=== PATIENT | female | born 1955 | race Caucasian/White ===

== ENCOUNTER 2020-11-15 16:23 | Inpatient (IN) | payer OTHER ==
[2020-11-15] MEDS ORDERED: DEXAMETHASONE SOD PHOSPHATE 10 MG/1 ML VIAL IVPUSH ONE (17:01)
[2020-11-15] MEDS ORDERED: SODIUM CHLORIDE 0.9% 500 ML INFUS.BAG IV ONE (17:01)
[2020-11-15] MEDS ORDERED: DEXAMETHASONE SOD PHOSPHATE 10 MG/1 ML VIAL ONE (17:46)
[2020-11-15 18:35] LABS: BASO % 0.2 % (0-2.0); HEMATOCRIT 40.6 % (32.4-45.2); HEMOGLOBIN 13.3 GM/dL (10.7-15.3); LYMPH % 20.4 % (8-40); MCH 27.4 pg (25.7-33.7); MCHC 32.8 g/dl (32.0-36.0); MEAN CELL VOLUME 83.8 fl (80-96); MEAN PLT VOLUME 9.5 fl (7.5-11.1); MONO % 5.4 % (3.8-10.2); PLATELET COUNT 212 K/MM3 (134-434); RBC 4.85 M/mm3 (3.60-5.2); RDW 14.4 % (11.6-15.6); WHITE BLOOD COUNT 4.3 K/mm3 (4.0-10.0)
[2020-11-15 18:39] LABS: VENOUS BASE EXCESS 1.4 mmol/L (-2-2); VENOUS PCO2 46.9 mmHg (38-52); VENOUS PH 7.379 (7.310-7.410)
[2020-11-15 18:43] LABS: INR 1.11 (0.83-1.09); PROTHROMBIN TIME (PATIENT) 13.4 SEC (9.7-13.0)
[2020-11-15 18:46] LABS: ACTIVATED PTT 34.3 SECONDS (25.2-36.5)
[2020-11-15 18:53] LABS: CHLORIDE 100 mmol/L (98-107); POTASSIUM 4.3 mmol/L (3.5-5.1); SODIUM 134 mmol/L (136-145)
[2020-11-15 18:55] LABS: CALCIUM 8.8 mg/dL (8.5-10.1)
[2020-11-15 18:56] LABS: ANION GAP 9 MMOL/L (8-16); CO2 26 mmol/L (21-32); GLUCOSE,RANDOM 161 mg/dL (74-106)
[2020-11-15 18:58] LABS: BILIRUBIN,DIRECT 0.2 mg/dL (0.0-0.2)
[2020-11-15 18:59] LABS: CREATININE 0.6 mg/dL (0.55-1.3); SGOT/AST 71 U/L (15-37); SGPT/ALT 34 U/L (13-61)
[2020-11-15 19:00] LABS: BILIRUBIN,TOTAL 0.4 mg/dL (0.2-1); TOT PROT 7.5 g/dl (6.4-8.2)
[2020-11-15 19:01] LABS: ALK PHOS 76 U/L (45-117)
[2020-11-15 19:03] LABS: LDH 699 U/L (84-246)
[2020-11-15 20:37] LABS: EPI CELLS 13 /uL (0-25.1); HYALINE CASTS 1 /uL (0-3.1); PH,URINE 6.5 (5.0-8.0); URINE APPEARANCE CLEAR; URINE BACTERIA 69 /uL (0-1359); URINE BILIRUBIN NEGATIVE (NEGATIVE); URINE COLOR YELLOW; URINE GLUCOSE (UA) NEGATIVE (NEGATIVE); URINE KETONE 1+ (NEGATIVE); URINE LEUK ESTERASE NEGATIVE (NEGATIVE); URINE NITRITE NEGATIVE (NEGATIVE); URINE PROTEIN 1+ (NEGATIVE); URINE RBC 28 /uL (0-23.9); URINE UROBILINOGEN 0.2 mg/dL (0.2-1.0); URINE WBC 11 /uL (0-25.8)
[2020-11-15] MEDS ORDERED: ALBUTEROL SO4 HFA INHALER IH PRN (22:23)
[2020-11-16] MEDS: INSULIN SLIDING SCALE (NOVOLOG) 1 VIAL SQ SCH ×4 (06:12→21:44)
[2020-11-16] MEDS ORDERED: ACETAMINOPHEN 325 MG TABLET (FP) PO PRN (08:49)
[2020-11-16 09:30] LABS: BASO % 0.3 % (0-2.0); HEMATOCRIT 34.8 % (32.4-45.2); HEMOGLOBIN 11.7 GM/dL (10.7-15.3); MCH 28.1 pg (25.7-33.7); MCHC 33.6 g/dl (32.0-36.0); MEAN CELL VOLUME 83.6 fl (80-96); MEAN PLT VOLUME 9.7 fl (7.5-11.1); MONO % 9.1 % (3.8-10.2); NEUT % 65.6 % (42.8-82.8); PLATELET COUNT 189 K/MM3 (134-434); RBC 4.16 M/mm3 (3.60-5.2); RDW 14.1 % (11.6-15.6); WHITE BLOOD COUNT 2.3 K/mm3 (4.0-10.0)
[2020-11-16] MEDS: ZINC SULFATE 220 MG CAPSULE (FP) PO SCH (09:51)
[2020-11-16] MEDS: ASCORBIC ACID 500 MG TABLET (FP) PO SCH ×2 (09:51→21:38)
[2020-11-16] MEDS: DEXAMETHASONE SOD PHOSPHATE 4 MG/1 ML VIAL IVPUSH SCH (09:51)
[2020-11-16] MEDS ORDERED: ENOXAPARIN NA (PORCINE) 40 MG/0.4 ML DISP.SYRIN SQ SCH (10:00)
[2020-11-16] MEDS ORDERED: CHOLECALCIFEROL (VIT D3) 1,000 UNIT (25 MCG) TABLET PO SCH (10:00)
[2020-11-16 10:18] LABS: POTASSIUM 4.7 mmol/L (3.5-5.1)
[2020-11-16 10:20] LABS: CALCIUM 8.3 mg/dL (8.5-10.1)
[2020-11-16 10:21] LABS: ALBUMIN 2.4 g/dl (3.4-5.0); BLOOD UREA NITROGEN 14.5 mg/dL (7-18)
[2020-11-16 10:24] LABS: CREATININE 0.5 mg/dL (0.55-1.3)
[2020-11-16 10:25] LABS: BILIRUBIN,TOTAL 0.4 mg/dL (0.2-1)
[2020-11-16 10:26] LABS: TOT PROT 6.2 g/dl (6.4-8.2)
[2020-11-16] MEDS: ALBUTEROL SO4 HFA INHALER IH SCH ×3 (11:19→21:48)
[2020-11-16] MEDS: BUDESONIDE/FORMETEROL FUMARATE 160/4.5 mcg INHALER IH SCH ×2 (11:50→21:47)
[2020-11-16] MEDS ORDERED: REMDESIVIR 200 MG in SODIUM CHLORIDE 210 ML IVPB ONE (12:00)
[2020-11-16] MEDS: ATORVASTATIN CA 20 MG TABLET (FP) PO SCH (21:38)
[2020-11-16] MEDS: ENOXAPARIN NA (PORCINE) 60 MG/0.6 ML DISP.SYRIN SQ SCH (21:43)
[2020-11-17] MEDS: INSULIN SLIDING SCALE (NOVOLOG) 1 VIAL SQ SCH ×4 (06:36→21:36)
[2020-11-17] MEDS: CHOLECALCIFEROL (VIT D3) 1,000 UNIT (25 MCG) TABLET PO SCH (09:42)
[2020-11-17] MEDS: ZINC SULFATE 220 MG CAPSULE (FP) PO SCH (09:42)
[2020-11-17] MEDS: ENOXAPARIN NA (PORCINE) 60 MG/0.6 ML DISP.SYRIN SQ SCH ×2 (09:42→21:39)
[2020-11-17] MEDS: ASCORBIC ACID 500 MG TABLET (FP) PO SCH ×2 (09:43→21:32)
[2020-11-17] MEDS: DEXAMETHASONE SOD PHOSPHATE 4 MG/1 ML VIAL IVPUSH SCH (09:43)
[2020-11-17] MEDS: BUDESONIDE/FORMETEROL FUMARATE 160/4.5 mcg INHALER IH SCH ×2 (09:45→21:36)
[2020-11-17] MEDS: ALBUTEROL SO4 HFA INHALER IH SCH ×4 (09:45→19:50)
[2020-11-17] MEDS: REMDESIVIR 100 MG in SODIUM CHLORIDE 230 ML IVPB SCH (12:52)
[2020-11-17] MEDS: FAMOTIDINE 20 MG TABLET PO SCH ×2 (12:52→21:32)
[2020-11-17] MEDS: guaiFENesin/D-M SUGAR-FREE/ACLHOL-FREE 118 ML BOTTLE PO PRN (16:08)
[2020-11-17] MEDS: ATORVASTATIN CA 20 MG TABLET (FP) PO SCH (21:32)
[2020-11-17] MEDS: INSULIN (LEVEMIR) 100 UNITS/ML UNITS SQ SCH (21:37)
[2020-11-18] MEDS ORDERED: PT OWN MED DRAWER 7, Y5N ONE (02:44)
[2020-11-18] MEDS: INSULIN SLIDING SCALE (NOVOLOG) 1 VIAL SQ SCH ×4 (06:32→21:25)
[2020-11-18 08:30] LABS: HEMATOCRIT 35.5 % (32.4-45.2); HEMOGLOBIN 12.2 GM/dL (10.7-15.3); MCH 28.5 pg (25.7-33.7); MCHC 34.3 g/dl (32.0-36.0); MEAN CELL VOLUME 83.1 fl (80-96); MEAN PLT VOLUME 9.2 fl (7.5-11.1); PLATELET COUNT 261 K/MM3 (134-434); RBC 4.28 M/mm3 (3.60-5.2); WHITE BLOOD COUNT 9.2 K/mm3 (4.0-10.0)
[2020-11-18 08:48] LABS: POTASSIUM 4.5 mmol/L (3.5-5.1)
[2020-11-18 08:51] LABS: CALCIUM 8.6 mg/dL (8.5-10.1)
[2020-11-18 08:52] LABS: ALBUMIN 2.6 g/dl (3.4-5.0); BLOOD UREA NITROGEN 19.9 mg/dL (7-18)
[2020-11-18 08:55] LABS: CREATININE 0.7 mg/dL (0.55-1.3); PHOSPHOROUS 3.5 mg/dL (2.5-4.9)
[2020-11-18 08:57] LABS: BILIRUBIN,TOTAL 0.9 mg/dL (0.2-1); TOT PROT 6.6 g/dl (6.4-8.2)
[2020-11-18] MEDS: DEXAMETHASONE SOD PHOSPHATE 4 MG/1 ML VIAL IVPUSH SCH (09:55)
[2020-11-18] MEDS: CHOLECALCIFEROL (VIT D3) 1,000 UNIT (25 MCG) TABLET PO SCH (09:55)
[2020-11-18] MEDS: FAMOTIDINE 20 MG TABLET PO SCH ×2 (09:55→21:19)
[2020-11-18] MEDS: ASCORBIC ACID 500 MG TABLET (FP) PO SCH ×2 (09:55→21:19)
[2020-11-18] MEDS: ZINC SULFATE 220 MG CAPSULE (FP) PO SCH (09:55)
[2020-11-18] MEDS: ENOXAPARIN NA (PORCINE) 60 MG/0.6 ML DISP.SYRIN SQ SCH ×2 (09:56→21:27)
[2020-11-18] MEDS: BUDESONIDE/FORMETEROL FUMARATE 160/4.5 mcg INHALER IH SCH ×2 (09:57→21:33)
[2020-11-18] MEDS: ALBUTEROL SO4 HFA INHALER IH SCH ×4 (09:57→20:35)
[2020-11-18] MEDS: REMDESIVIR 100 MG in SODIUM CHLORIDE 230 ML IVPB SCH (11:09)
[2020-11-18] MEDS: ATORVASTATIN CA 20 MG TABLET (FP) PO SCH (21:19)
[2020-11-18] MEDS: INSULIN (LEVEMIR) 100 UNITS/ML UNITS SQ SCH (21:31)
[2020-11-19] MEDS: INSULIN SLIDING SCALE (NOVOLOG) 1 VIAL SQ SCH ×4 (06:23→21:48)
[2020-11-19 07:57] LABS: HEMATOCRIT 35.7 % (32.4-45.2); HEMOGLOBIN 12.1 GM/dL (10.7-15.3); MCH 28.2 pg (25.7-33.7); MCHC 33.8 g/dl (32.0-36.0); MEAN CELL VOLUME 83.2 fl (80-96); MEAN PLT VOLUME 9.2 fl (7.5-11.1); PLATELET COUNT 284 K/MM3 (134-434); RBC 4.29 M/mm3 (3.60-5.2); RDW 14.1 % (11.6-15.6); WHITE BLOOD COUNT 9.5 K/mm3 (4.0-10.0)
[2020-11-19 08:12] LABS: POTASSIUM 4.9 mmol/L (3.5-5.1)
[2020-11-19 08:14] LABS: ALBUMIN 2.4 g/dl (3.4-5.0); BLOOD UREA NITROGEN 19.3 mg/dL (7-18); CALCIUM 8.5 mg/dL (8.5-10.1)
[2020-11-19 08:15] LABS: MAGNESIUM 2.2 mg/dL (1.8-2.4)
[2020-11-19 08:19] LABS: BILIRUBIN,TOTAL 0.5 mg/dL (0.2-1)
[2020-11-19 08:20] LABS: PHOSPHOROUS 2.9 mg/dL (2.5-4.9)
[2020-11-19 08:24] LABS: CREATININE 0.6 mg/dL (0.55-1.3)
[2020-11-19 08:25] LABS: TOT PROT 6.1 g/dl (6.4-8.2)
[2020-11-19] MEDS ORDERED: PT OWN MED DRAWER 7, Y5N ONE ×2 (10:37→19:15)
[2020-11-19] MEDS: ASPIRIN 81 MG CHEWABLE TABLETS PO SCH (10:46)
[2020-11-19] MEDS: FAMOTIDINE 20 MG TABLET PO SCH ×2 (10:46→21:42)
[2020-11-19] MEDS: ASCORBIC ACID 500 MG TABLET (FP) PO SCH ×2 (10:46→21:42)
[2020-11-19] MEDS: ZINC SULFATE 220 MG CAPSULE (FP) PO SCH (10:46)
[2020-11-19] MEDS: CHOLECALCIFEROL (VIT D3) 1,000 UNIT (25 MCG) TABLET PO SCH (10:46)
[2020-11-19] MEDS: BUDESONIDE/FORMETEROL FUMARATE 160/4.5 mcg INHALER IH SCH ×2 (10:47→21:46)
[2020-11-19] MEDS: ENOXAPARIN NA (PORCINE) 60 MG/0.6 ML DISP.SYRIN SQ SCH ×2 (10:47→21:41)
[2020-11-19] MEDS: DEXAMETHASONE SOD PHOSPHATE 4 MG/1 ML VIAL IVPUSH SCH (10:47)
[2020-11-19] MEDS: ALBUTEROL SO4 HFA INHALER IH SCH ×4 (10:47→20:45)
[2020-11-19] MEDS: ENALAPRIL MALEATE 5 MG TABLET PO SCH (10:48)
[2020-11-19] MEDS: REMDESIVIR 100 MG in SODIUM CHLORIDE 230 ML IVPB SCH (11:02)
[2020-11-19] MEDS ORDERED: INSULIN (NOVOLOG) ASPART 100 UNITS/ML 10ML VIAL ONE (20:14)
[2020-11-19] MEDS: ATORVASTATIN CA 20 MG TABLET (FP) PO SCH (21:43)
[2020-11-19] MEDS: INSULIN (LEVEMIR) 100 UNITS/ML UNITS SQ SCH (21:47)
[2020-11-20] MEDS: INSULIN SLIDING SCALE (NOVOLOG) 1 VIAL SQ SCH ×5 (06:15→23:04)
[2020-11-20] MEDS: INSULIN (LEVEMIR) 100 UNITS/ML UNITS SQ SCH ×2 (08:44→23:03)
[2020-11-20] MEDS: ALBUTEROL SO4 HFA INHALER IH SCH ×4 (08:45→23:02)
[2020-11-20 09:06] LABS: HEMATOCRIT 35.8 % (32.4-45.2); MCH 27.8 pg (25.7-33.7); MCHC 33.4 g/dl (32.0-36.0); MEAN CELL VOLUME 83.2 fl (80-96); MEAN PLT VOLUME 8.7 fl (7.5-11.1); PLATELET COUNT 320 K/MM3 (134-434); RBC 4.31 M/mm3 (3.60-5.2); RDW 14.2 % (11.6-15.6); WHITE BLOOD COUNT 9.6 K/mm3 (4.0-10.0)
[2020-11-20 09:18] LABS: POTASSIUM 4.6 mmol/L (3.5-5.1)
[2020-11-20 09:23] LABS: CALCIUM 8.9 mg/dL (8.5-10.1)
[2020-11-20 09:24] LABS: ALBUMIN 2.4 g/dl (3.4-5.0); BLOOD UREA NITROGEN 18.6 mg/dL (7-18); MAGNESIUM 2.4 mg/dL (1.8-2.4)
[2020-11-20 09:27] LABS: CREATININE 0.6 mg/dL (0.55-1.3)
[2020-11-20 09:28] LABS: BILIRUBIN,TOTAL 1.1 mg/dL (0.2-1); TOT PROT 6.2 g/dl (6.4-8.2)
[2020-11-20] MEDS ORDERED: PT OWN MED DRAWER 7, Y5N ONE (10:59)
[2020-11-20] MEDS: FAMOTIDINE 20 MG TABLET PO SCH ×2 (11:01→23:03)
[2020-11-20] MEDS: ZINC SULFATE 220 MG CAPSULE (FP) PO SCH (11:01)
[2020-11-20] MEDS: ASCORBIC ACID 500 MG TABLET (FP) PO SCH ×2 (11:01→23:03)
[2020-11-20] MEDS: CHOLECALCIFEROL (VIT D3) 1,000 UNIT (25 MCG) TABLET PO SCH (11:01)
[2020-11-20] MEDS: ASPIRIN 81 MG CHEWABLE TABLETS PO SCH (11:01)
[2020-11-20] MEDS: ENALAPRIL MALEATE 5 MG TABLET PO SCH (11:02)
[2020-11-20] MEDS: ENOXAPARIN NA (PORCINE) 60 MG/0.6 ML DISP.SYRIN SQ SCH ×2 (11:03→23:05)
[2020-11-20] MEDS: BUDESONIDE/FORMETEROL FUMARATE 160/4.5 mcg INHALER IH SCH ×2 (11:03→23:03)
[2020-11-20] MEDS: REMDESIVIR 100 MG in SODIUM CHLORIDE 230 ML IVPB SCH (11:06)
[2020-11-20] MEDS: DEXAMETHASONE SOD PHOSPHATE 4 MG/1 ML VIAL IVPUSH SCH (12:23)
[2020-11-20] MEDS ORDERED: CODEINE SO4 30 MG TABLET PO PRN (16:58)
[2020-11-20] MEDS: ATORVASTATIN CA 20 MG TABLET (FP) PO SCH (23:03)
[2020-11-21] MEDS: INSULIN SLIDING SCALE (NOVOLOG) 1 VIAL SQ SCH ×4 (06:28→21:58)
[2020-11-21] MEDS: INSULIN (LEVEMIR) 100 UNITS/ML UNITS SQ SCH ×2 (06:29→21:57)
[2020-11-21] MEDS: ALBUTEROL SO4 HFA INHALER IH SCH ×4 (07:44→21:56)
[2020-11-21 08:00] LABS: HEMATOCRIT 35.5 % (32.4-45.2); HEMOGLOBIN 11.7 GM/dL (10.7-15.3); MCH 27.8 pg (25.7-33.7); MEAN CELL VOLUME 84.3 fl (80-96); MEAN PLT VOLUME 9.6 fl (7.5-11.1); PLATELET COUNT 349 K/MM3 (134-434); RBC 4.21 M/mm3 (3.60-5.2); RDW 14.2 % (11.6-15.6); WHITE BLOOD COUNT 6.2 K/mm3 (4.0-10.0)
[2020-11-21 08:15] LABS: POTASSIUM 5.3 mmol/L (3.5-5.1)
[2020-11-21 08:49] LABS: ALBUMIN 2.4 g/dl (3.4-5.0); BLOOD UREA NITROGEN 17.9 mg/dL (7-18); MAGNESIUM 2.3 mg/dL (1.8-2.4)
[2020-11-21 08:52] LABS: CREATININE 0.6 mg/dL (0.55-1.3)
[2020-11-21 08:53] LABS: BILIRUBIN,TOTAL 0.7 mg/dL (0.2-1); TOT PROT 6.5 g/dl (6.4-8.2)
[2020-11-21] MEDS: DEXAMETHASONE SOD PHOSPHATE 4 MG/1 ML VIAL IVPUSH SCH (09:35)
[2020-11-21] MEDS: ZINC SULFATE 220 MG CAPSULE (FP) PO SCH (09:35)
[2020-11-21] MEDS: ENOXAPARIN NA (PORCINE) 60 MG/0.6 ML DISP.SYRIN SQ SCH ×2 (09:35→21:59)
[2020-11-21] MEDS: ASCORBIC ACID 500 MG TABLET (FP) PO SCH ×2 (09:35→21:57)
[2020-11-21] MEDS: ENALAPRIL MALEATE 5 MG TABLET PO SCH (09:36)
[2020-11-21] MEDS: ASPIRIN 81 MG CHEWABLE TABLETS PO SCH (09:36)
[2020-11-21] MEDS: BUDESONIDE/FORMETEROL FUMARATE 160/4.5 mcg INHALER IH SCH ×2 (09:36→21:59)
[2020-11-21] MEDS: CHOLECALCIFEROL (VIT D3) 1,000 UNIT (25 MCG) TABLET PO SCH (09:36)
[2020-11-21] MEDS: FAMOTIDINE 20 MG TABLET PO SCH ×2 (09:36→21:57)
[2020-11-21] MEDS: ATORVASTATIN CA 20 MG TABLET (FP) PO SCH (21:57)
[2020-11-22] MEDS: INSULIN (LEVEMIR) 100 UNITS/ML UNITS SQ SCH ×2 (06:31→22:06)
[2020-11-22] MEDS: INSULIN SLIDING SCALE (NOVOLOG) 1 VIAL SQ SCH ×4 (06:31→22:03)
[2020-11-22 08:29] LABS: HEMATOCRIT 40.1 % (32.4-45.2); HEMOGLOBIN 13.2 GM/dL (10.7-15.3); MCH 27.8 pg (25.7-33.7); MEAN CELL VOLUME 84.4 fl (80-96); MEAN PLT VOLUME 9.1 fl (7.5-11.1); PLATELET COUNT 510 K/MM3 (134-434); RBC 4.76 M/mm3 (3.60-5.2); RDW 14.2 % (11.6-15.6)
[2020-11-22 09:01] LABS: POTASSIUM 5.3 mmol/L (3.5-5.1)
[2020-11-22 09:08] LABS: ALBUMIN 2.6 g/dl (3.4-5.0); BLOOD UREA NITROGEN 21.2 mg/dL (7-18); CALCIUM 9.4 mg/dL (8.5-10.1); MAGNESIUM 2.2 mg/dL (1.8-2.4)
[2020-11-22 09:11] LABS: CREATININE 0.8 mg/dL (0.55-1.3); PHOSPHOROUS 3.6 mg/dL (2.5-4.9)
[2020-11-22 09:13] LABS: BILIRUBIN,TOTAL 0.7 mg/dL (0.2-1); TOT PROT 6.9 g/dl (6.4-8.2)
[2020-11-22 09:32] VITALS: BMI 25.9
[2020-11-22] MEDS: ALBUTEROL SO4 HFA INHALER IH SCH ×4 (10:00→22:11)
[2020-11-22] MEDS: DEXAMETHASONE SOD PHOSPHATE 4 MG/1 ML VIAL IVPUSH SCH (11:16)
[2020-11-22] MEDS: ZINC SULFATE 220 MG CAPSULE (FP) PO SCH (11:17)
[2020-11-22] MEDS: ASCORBIC ACID 500 MG TABLET (FP) PO SCH ×2 (11:17→22:08)
[2020-11-22] MEDS: ASPIRIN 81 MG CHEWABLE TABLETS PO SCH (11:17)
[2020-11-22] MEDS: CHOLECALCIFEROL (VIT D3) 1,000 UNIT (25 MCG) TABLET PO SCH (11:17)
[2020-11-22] MEDS: ENOXAPARIN NA (PORCINE) 60 MG/0.6 ML DISP.SYRIN SQ SCH ×2 (11:18→22:01)
[2020-11-22] MEDS: FAMOTIDINE 20 MG TABLET PO SCH ×2 (11:18→22:08)
[2020-11-22] MEDS: ENALAPRIL MALEATE 5 MG TABLET PO SCH (11:19)
[2020-11-22] MEDS: BUDESONIDE/FORMETEROL FUMARATE 160/4.5 mcg INHALER IH SCH ×2 (11:19→22:11)
[2020-11-22] MEDS ORDERED: AZITHROMYCIN IVPB 500 MG/250 ML BAG IVPB SCH (12:30)
[2020-11-22] MEDS ORDERED: CEFTRIAXONE 1 GM in DEXTROSE 5%-WATER - 50 ML IVPB SCH (12:30)
[2020-11-22] MEDS ORDERED: SODIUM CHLORIDE 1,000 ML IV SCH (13:00)
[2020-11-22 15:49] LABS: PH,URINE 7.5 (5.0-8.0); URINE APPEARANCE CLEAR; URINE BILIRUBIN NEGATIVE (NEGATIVE); URINE COLOR YELLOW; URINE GLUCOSE (UA) NEGATIVE (NEGATIVE); URINE KETONE TRACE (NEGATIVE); URINE LEUK ESTERASE NEGATIVE (NEGATIVE); URINE NITRITE NEGATIVE (NEGATIVE); URINE PROTEIN NEGATIVE (NEGATIVE)
[2020-11-22] MEDS: guaiFENesin/D-M SUGAR-FREE/ACLHOL-FREE 118 ML BOTTLE PO PRN (18:07)
[2020-11-22] MEDS: ATORVASTATIN CA 20 MG TABLET (FP) PO SCH (22:08)
[2020-11-23] MEDS: INSULIN SLIDING SCALE (NOVOLOG) 1 VIAL SQ SCH ×4 (06:21→21:20)
[2020-11-23] MEDS: INSULIN (LEVEMIR) 100 UNITS/ML UNITS SQ SCH ×2 (06:22→21:22)
[2020-11-23 07:13] LABS: BASO % 0.2 % (0-2.0); EOS % 0.1 % (0-4.5); HEMATOCRIT 35.6 % (32.4-45.2); HEMOGLOBIN 11.8 GM/dL (10.7-15.3); LYMPH % 14.9 % (8-40); MCH 28.1 pg (25.7-33.7); MEAN PLT VOLUME 9.2 fl (7.5-11.1); MONO % 6.7 % (3.8-10.2); NEUT % 78.1 % (42.8-82.8); PLATELET COUNT 329 K/MM3 (134-434); RBC 4.19 M/mm3 (3.60-5.2); RDW 14.2 % (11.6-15.6); WHITE BLOOD COUNT 6.7 K/mm3 (4.0-10.0)
[2020-11-23 07:38] LABS: POTASSIUM 5.5 mmol/L (3.5-5.1)
[2020-11-23 07:42] LABS: CALCIUM 8.7 mg/dL (8.5-10.1)
[2020-11-23 07:43] LABS: ALBUMIN 2.2 g/dl (3.4-5.0); BLOOD UREA NITROGEN 17.5 mg/dL (7-18); MAGNESIUM 2.2 mg/dL (1.8-2.4)
[2020-11-23 07:46] LABS: CREATININE 0.6 mg/dL (0.55-1.3)
[2020-11-23 07:48] LABS: BILIRUBIN,TOTAL 0.6 mg/dL (0.2-1); TOT PROT 6.2 g/dl (6.4-8.2)
[2020-11-23] MEDS ORDERED: SODIUM ZIRCONIUM CYCLOSILICATE (LOKELMA) 10 GM PACKET PO SCH (10:00)
[2020-11-23] MEDS ORDERED: PT OWN MED DRAWER 7, Y5N ONE (10:40)
[2020-11-23] MEDS: FAMOTIDINE 20 MG TABLET PO SCH ×2 (10:44→21:20)
[2020-11-23] MEDS: ZINC SULFATE 220 MG CAPSULE (FP) PO SCH (10:44)
[2020-11-23] MEDS: ASCORBIC ACID 500 MG TABLET (FP) PO SCH ×2 (10:44→21:20)
[2020-11-23] MEDS: ASPIRIN 81 MG CHEWABLE TABLETS PO SCH (10:45)
[2020-11-23] MEDS: CHOLECALCIFEROL (VIT D3) 1,000 UNIT (25 MCG) TABLET PO SCH (10:45)
[2020-11-23] MEDS: ALBUTEROL SO4 HFA INHALER IH SCH ×4 (10:45→21:25)
[2020-11-23] MEDS: DEXAMETHASONE SOD PHOSPHATE 4 MG/1 ML VIAL IVPUSH SCH (10:45)
[2020-11-23] MEDS: ENOXAPARIN NA (PORCINE) 60 MG/0.6 ML DISP.SYRIN SQ SCH ×2 (10:46→21:25)
[2020-11-23] MEDS ORDERED: INSULIN (NOVOLOG) ASPART 100 UNITS/ML 10ML VIAL ONE (12:27)
[2020-11-23] MEDS: BUDESONIDE/FORMETEROL FUMARATE 160/4.5 mcg INHALER IH SCH ×2 (12:32→21:25)
[2020-11-23] MEDS: ATORVASTATIN CA 20 MG TABLET (FP) PO SCH (21:20)
[2020-11-24] MEDS: INSULIN SLIDING SCALE (NOVOLOG) 1 VIAL SQ SCH ×4 (06:10→21:20)
[2020-11-24] MEDS: INSULIN (LEVEMIR) 100 UNITS/ML UNITS SQ SCH ×2 (06:10→21:21)
[2020-11-24 08:22] LABS: HEMATOCRIT 35.2 % (32.4-45.2); HEMOGLOBIN 11.8 GM/dL (10.7-15.3); MCH 28.2 pg (25.7-33.7); MCHC 33.4 g/dl (32.0-36.0); MEAN CELL VOLUME 84.4 fl (80-96); MEAN PLT VOLUME 9.6 fl (7.5-11.1); PLATELET COUNT 360 K/MM3 (134-434); RBC 4.17 M/mm3 (3.60-5.2); RDW 14.3 % (11.6-15.6); WHITE BLOOD COUNT 7.8 K/mm3 (4.0-10.0)
[2020-11-24 08:48] LABS: POTASSIUM 4.2 mmol/L (3.5-5.1)
[2020-11-24 08:56] LABS: ALBUMIN 2.4 g/dl (3.4-5.0); BILIRUBIN,TOTAL 0.6 mg/dL (0.2-1); CALCIUM 9.2 mg/dL (8.5-10.1)
[2020-11-24 08:57] LABS: BLOOD UREA NITROGEN 18.7 mg/dL (7-18); CREATININE 0.6 mg/dL (0.55-1.3)
[2020-11-24 08:58] LABS: PHOSPHOROUS 4.3 mg/dL (2.5-4.9)
[2020-11-24 08:59] LABS: MAGNESIUM 2.1 mg/dL (1.8-2.4); TOT PROT 6.6 g/dl (6.4-8.2)
[2020-11-24 10:02] LABS: ERYTHROCYTE SEDIMENTATION RATE 101 mm/hr (0-30)
[2020-11-24] MEDS ORDERED: PT OWN MED DRAWER 7, Y5N ONE ×2 (10:43→20:45)
[2020-11-24] MEDS: CHOLECALCIFEROL (VIT D3) 1,000 UNIT (25 MCG) TABLET PO SCH (10:45)
[2020-11-24] MEDS: FAMOTIDINE 20 MG TABLET PO SCH ×2 (10:45→21:20)
[2020-11-24] MEDS: ZINC SULFATE 220 MG CAPSULE (FP) PO SCH (10:45)
[2020-11-24] MEDS: ASCORBIC ACID 500 MG TABLET (FP) PO SCH ×2 (10:45→21:20)
[2020-11-24] MEDS: DEXAMETHASONE SOD PHOSPHATE 4 MG/1 ML VIAL IVPUSH SCH (10:45)
[2020-11-24] MEDS: ASPIRIN 81 MG CHEWABLE TABLETS PO SCH (10:45)
[2020-11-24] MEDS: BUDESONIDE/FORMETEROL FUMARATE 160/4.5 mcg INHALER IH SCH ×2 (10:46→21:20)
[2020-11-24] MEDS: ENOXAPARIN NA (PORCINE) 60 MG/0.6 ML DISP.SYRIN SQ SCH ×2 (10:46→21:22)
[2020-11-24] MEDS: ALBUTEROL SO4 HFA INHALER IH SCH ×4 (10:46→21:20)
[2020-11-24] MEDS ORDERED: INSULIN (NOVOLOG) ASPART 100 UNITS/ML 10ML VIAL ONE (20:44)
[2020-11-24] MEDS: ATORVASTATIN CA 20 MG TABLET (FP) PO SCH (21:20)
[2020-11-24] MEDS: guaiFENesin/D-M SUGAR-FREE/ACLHOL-FREE 118 ML BOTTLE PO PRN (21:22)
[2020-11-25] MEDS ORDERED: INSULIN (NOVOLOG) ASPART 100 UNITS/ML 10ML VIAL ONE (05:17)
[2020-11-25] MEDS: INSULIN SLIDING SCALE (NOVOLOG) 1 VIAL SQ SCH ×4 (06:25→21:50)
[2020-11-25] MEDS: INSULIN (LEVEMIR) 100 UNITS/ML UNITS SQ SCH ×2 (06:26→21:50)
[2020-11-25] MEDS ORDERED: PT OWN MED DRAWER 7, Y5N ONE (09:18)
[2020-11-25] MEDS: ALBUTEROL SO4 HFA INHALER IH SCH ×4 (09:56→21:58)
[2020-11-25] MEDS: ZINC SULFATE 220 MG CAPSULE (FP) PO SCH (09:57)
[2020-11-25] MEDS: guaiFENesin/D-M SUGAR-FREE/ACLHOL-FREE 118 ML BOTTLE PO PRN ×2 (09:57→22:01)
[2020-11-25] MEDS: CHOLECALCIFEROL (VIT D3) 1,000 UNIT (25 MCG) TABLET PO SCH (09:57)
[2020-11-25] MEDS: ASCORBIC ACID 500 MG TABLET (FP) PO SCH ×2 (09:57→22:01)
[2020-11-25] MEDS: FAMOTIDINE 20 MG TABLET PO SCH ×2 (09:57→22:01)
[2020-11-25] MEDS: BUDESONIDE/FORMETEROL FUMARATE 160/4.5 mcg INHALER IH SCH ×2 (09:58→21:53)
[2020-11-25] MEDS: ASPIRIN 81 MG CHEWABLE TABLETS PO SCH (09:58)
[2020-11-25] MEDS: ENOXAPARIN NA (PORCINE) 60 MG/0.6 ML DISP.SYRIN SQ SCH ×2 (09:58→21:59)
[2020-11-25] MEDS: DEXAMETHASONE SOD PHOSPHATE 4 MG/1 ML VIAL IVPUSH SCH (09:58)
[2020-11-25] MEDS ORDERED: ACETAMINOPHEN 325 MG TABLET (FP) PO PRN (15:38)
[2020-11-25] MEDS: ATORVASTATIN CA 20 MG TABLET (FP) PO SCH (22:01)
[2020-11-26] MEDS: INSULIN SLIDING SCALE (NOVOLOG) 1 VIAL SQ SCH ×4 (06:25→21:35)
[2020-11-26] MEDS: INSULIN (LEVEMIR) 100 UNITS/ML UNITS SQ SCH ×2 (06:25→21:36)
[2020-11-26 06:43] LABS: HEMATOCRIT 36.6 % (32.4-45.2); HEMOGLOBIN 12.3 GM/dL (10.7-15.3); MCH 28.4 pg (25.7-33.7); MCHC 33.7 g/dl (32.0-36.0); MEAN CELL VOLUME 84.2 fl (80-96); MEAN PLT VOLUME 8.7 fl (7.5-11.1); PLATELET COUNT 342 K/MM3 (134-434); RBC 4.34 M/mm3 (3.60-5.2); WHITE BLOOD COUNT 10.5 K/mm3 (4.0-10.0)
[2020-11-26 07:17] LABS: POTASSIUM 4.9 mmol/L (3.5-5.1)
[2020-11-26 07:21] LABS: CALCIUM 9.1 mg/dL (8.5-10.1)
[2020-11-26 07:22] LABS: ALBUMIN 2.4 g/dl (3.4-5.0); BLOOD UREA NITROGEN 21.6 mg/dL (7-18); MAGNESIUM 2.4 mg/dL (1.8-2.4)
[2020-11-26 07:26] LABS: BILIRUBIN,TOTAL 0.7 mg/dL (0.2-1); CREATININE 0.7 mg/dL (0.55-1.3); TOT PROT 6.7 g/dl (6.4-8.2)
[2020-11-26] MEDS: ALBUTEROL SO4 HFA INHALER IH SCH ×4 (10:06→21:38)
[2020-11-26] MEDS: BUDESONIDE/FORMETEROL FUMARATE 160/4.5 mcg INHALER IH SCH ×2 (10:07→21:37)
[2020-11-26] MEDS ORDERED: DEXAMETHASONE SOD PHOSPHATE 10 MG/1 ML VIAL ONE (10:27)
[2020-11-26] MEDS: DEXAMETHASONE SOD PHOSPHATE 4 MG/1 ML VIAL IVPUSH SCH (11:43)
[2020-11-26] MEDS: ASPIRIN 81 MG CHEWABLE TABLETS PO SCH (11:45)
[2020-11-26] MEDS: ZINC SULFATE 220 MG CAPSULE (FP) PO SCH (11:45)
[2020-11-26] MEDS: FAMOTIDINE 20 MG TABLET PO SCH ×2 (11:45→21:31)
[2020-11-26] MEDS: ASCORBIC ACID 500 MG TABLET (FP) PO SCH ×2 (11:45→21:32)
[2020-11-26] MEDS: CHOLECALCIFEROL (VIT D3) 1,000 UNIT (25 MCG) TABLET PO SCH (11:46)
[2020-11-26] MEDS: ENOXAPARIN NA (PORCINE) 60 MG/0.6 ML DISP.SYRIN SQ SCH ×2 (11:46→21:32)
[2020-11-26] MEDS: ATORVASTATIN CA 20 MG TABLET (FP) PO SCH (21:32)
[2020-11-27] MEDS: INSULIN SLIDING SCALE (NOVOLOG) 1 VIAL SQ SCH ×4 (06:16→21:44)
[2020-11-27] MEDS: INSULIN (LEVEMIR) 100 UNITS/ML UNITS SQ SCH ×2 (06:16→21:35)
[2020-11-27 07:19] LABS: HEMATOCRIT 37.3 % (32.4-45.2); HEMOGLOBIN 12.7 GM/dL (10.7-15.3); MCH 28.6 pg (25.7-33.7); MEAN CELL VOLUME 83.9 fl (80-96); PLATELET COUNT 333 K/MM3 (134-434); RBC 4.45 M/mm3 (3.60-5.2); RDW 14.4 % (11.6-15.6); WHITE BLOOD COUNT 12.2 K/mm3 (4.0-10.0)
[2020-11-27 07:38] LABS: POTASSIUM 4.4 mmol/L (3.5-5.1)
[2020-11-27 07:43] LABS: ALBUMIN 2.5 g/dl (3.4-5.0); BLOOD UREA NITROGEN 19.6 mg/dL (7-18); CALCIUM 8.9 mg/dL (8.5-10.1); MAGNESIUM 2.2 mg/dL (1.8-2.4)
[2020-11-27 07:45] LABS: CREATININE 0.6 mg/dL (0.55-1.3); PHOSPHOROUS 4.2 mg/dL (2.5-4.9)
[2020-11-27 07:47] LABS: BILIRUBIN,TOTAL 0.8 mg/dL (0.2-1); TOT PROT 6.6 g/dl (6.4-8.2)
[2020-11-27] MEDS: ALBUTEROL SO4 HFA INHALER IH SCH ×4 (07:52→21:35)
[2020-11-27] MEDS: ENOXAPARIN NA (PORCINE) 60 MG/0.6 ML DISP.SYRIN SQ SCH ×2 (09:45→21:36)
[2020-11-27] MEDS: CHOLECALCIFEROL (VIT D3) 1,000 UNIT (25 MCG) TABLET PO SCH (09:45)
[2020-11-27] MEDS: ZINC SULFATE 220 MG CAPSULE (FP) PO SCH (09:45)
[2020-11-27] MEDS: DEXAMETHASONE SOD PHOSPHATE 4 MG/1 ML VIAL IVPUSH SCH (09:45)
[2020-11-27] MEDS: FAMOTIDINE 20 MG TABLET PO SCH ×2 (09:45→21:36)
[2020-11-27] MEDS: ASPIRIN 81 MG CHEWABLE TABLETS PO SCH (10:03)
[2020-11-27] MEDS: ASCORBIC ACID 500 MG TABLET (FP) PO SCH ×2 (10:03→21:36)
[2020-11-27] MEDS: BUDESONIDE/FORMETEROL FUMARATE 160/4.5 mcg INHALER IH SCH ×2 (10:03→21:52)
[2020-11-27] MEDS: guaiFENesin/D-M SUGAR-FREE/ACLHOL-FREE 118 ML BOTTLE PO PRN (10:18)
[2020-11-27] MEDS: ATORVASTATIN CA 20 MG TABLET (FP) PO SCH (21:36)
[2020-11-28] MEDS: INSULIN (LEVEMIR) 100 UNITS/ML UNITS SQ SCH ×2 (06:00→21:50)
[2020-11-28] MEDS: INSULIN SLIDING SCALE (NOVOLOG) 1 VIAL SQ SCH ×4 (06:00→21:51)
[2020-11-28 06:36] LABS: HEMOGLOBIN 12.1 GM/dL (10.7-15.3); MCH 28.1 pg (25.7-33.7); MCHC 33.5 g/dl (32.0-36.0); MEAN CELL VOLUME 83.9 fl (80-96); MEAN PLT VOLUME 9.2 fl (7.5-11.1); PLATELET COUNT 289 K/MM3 (134-434); RBC 4.29 M/mm3 (3.60-5.2); RDW 14.3 % (11.6-15.6); WHITE BLOOD COUNT 11.3 K/mm3 (4.0-10.0)
[2020-11-28 06:50] LABS: POTASSIUM 4.9 mmol/L (3.5-5.1)
[2020-11-28 06:52] LABS: ALBUMIN 2.4 g/dl (3.4-5.0); BLOOD UREA NITROGEN 24.2 mg/dL (7-18); CALCIUM 9.1 mg/dL (8.5-10.1); MAGNESIUM 2.3 mg/dL (1.8-2.4)
[2020-11-28 06:55] LABS: CREATININE 0.6 mg/dL (0.55-1.3)
[2020-11-28 06:56] LABS: PHOSPHOROUS 4.3 mg/dL (2.5-4.9)
[2020-11-28 06:57] LABS: BILIRUBIN,TOTAL 0.8 mg/dL (0.2-1); TOT PROT 6.6 g/dl (6.4-8.2)
[2020-11-28] MEDS: ALBUTEROL SO4 HFA INHALER IH SCH ×3 (08:00→16:01)
[2020-11-28] MEDS: ZINC SULFATE 220 MG CAPSULE (FP) PO SCH (10:28)
[2020-11-28] MEDS: ASCORBIC ACID 500 MG TABLET (FP) PO SCH ×2 (10:28→21:31)
[2020-11-28] MEDS: CHOLECALCIFEROL (VIT D3) 1,000 UNIT (25 MCG) TABLET PO SCH (10:28)
[2020-11-28] MEDS: FAMOTIDINE 20 MG TABLET PO SCH ×2 (10:28→21:31)
[2020-11-28] MEDS: ASPIRIN 81 MG CHEWABLE TABLETS PO SCH (10:28)
[2020-11-28] MEDS: DEXAMETHASONE SOD PHOSPHATE 4 MG/1 ML VIAL IVPUSH SCH (10:29)
[2020-11-28] MEDS: ENOXAPARIN NA (PORCINE) 60 MG/0.6 ML DISP.SYRIN SQ SCH ×2 (10:29→21:31)
[2020-11-28] MEDS: guaiFENesin/D-M SUGAR-FREE/ACLHOL-FREE 118 ML BOTTLE PO PRN (10:53)
[2020-11-28] MEDS: BUDESONIDE/FORMETEROL FUMARATE 160/4.5 mcg INHALER IH SCH ×2 (11:51→21:52)
[2020-11-28] MEDS: ATORVASTATIN CA 20 MG TABLET (FP) PO SCH (21:31)
[2020-11-29] MEDS: INSULIN SLIDING SCALE (NOVOLOG) 1 VIAL SQ SCH ×4 (06:26→22:07)
[2020-11-29] MEDS: INSULIN (LEVEMIR) 100 UNITS/ML UNITS SQ SCH ×2 (06:26→22:07)
[2020-11-29 06:43] LABS: POTASSIUM 4.3 mmol/L (3.5-5.1)
[2020-11-29 06:48] LABS: ALBUMIN 2.5 g/dl (3.4-5.0); BLOOD UREA NITROGEN 24.2 mg/dL (7-18); CALCIUM 9.5 mg/dL (8.5-10.1); MAGNESIUM 2.3 mg/dL (1.8-2.4)
[2020-11-29 06:51] LABS: CREATININE 0.5 mg/dL (0.55-1.3); PHOSPHOROUS 4.2 mg/dL (2.5-4.9)
[2020-11-29 06:53] LABS: BILIRUBIN,TOTAL 0.8 mg/dL (0.2-1); TOT PROT 6.9 g/dl (6.4-8.2)
[2020-11-29 08:12] LABS: HEMATOCRIT 38.8 % (32.4-45.2); HEMOGLOBIN 12.7 GM/dL (10.7-15.3); MCHC 32.8 g/dl (32.0-36.0); MEAN CELL VOLUME 85.5 fl (80-96); MEAN PLT VOLUME 9.9 fl (7.5-11.1); PLATELET COUNT 318 K/MM3 (134-434); RBC 4.54 M/mm3 (3.60-5.2); RDW 14.1 % (11.6-15.6); WHITE BLOOD COUNT 12.7 K/mm3 (4.0-10.0)
[2020-11-29] MEDS ORDERED: guaiFENesin/CODEINE 10 ML UNIT-DOSE CUPS PO PRN (09:02)
[2020-11-29] MEDS: ASPIRIN 81 MG CHEWABLE TABLETS PO SCH (09:32)
[2020-11-29] MEDS: ALBUTEROL SO4 HFA INHALER IH SCH ×5 (09:32→22:12)
[2020-11-29] MEDS: DEXAMETHASONE SOD PHOSPHATE 4 MG/1 ML VIAL IVPUSH SCH (09:32)
[2020-11-29] MEDS: ENOXAPARIN NA (PORCINE) 60 MG/0.6 ML DISP.SYRIN SQ SCH ×2 (09:32→22:07)
[2020-11-29] MEDS: CHOLECALCIFEROL (VIT D3) 1,000 UNIT (25 MCG) TABLET PO SCH (09:33)
[2020-11-29] MEDS: POLYETHYLENE GLYCOL 3350 119 GM BTL PO SCH (09:33)
[2020-11-29] MEDS: FAMOTIDINE 20 MG TABLET PO SCH ×2 (09:33→22:07)
[2020-11-29] MEDS: ZINC SULFATE 220 MG CAPSULE (FP) PO SCH (09:33)
[2020-11-29] MEDS: ASCORBIC ACID 500 MG TABLET (FP) PO SCH ×2 (09:33→22:07)
[2020-11-29] MEDS: BUDESONIDE/FORMETEROL FUMARATE 160/4.5 mcg INHALER IH SCH ×2 (09:37→22:11)
[2020-11-29] MEDS ORDERED: DEXTROSE 5%-NORMAL SALINE 1,000 ML IV SCH (10:30)
[2020-11-29] MEDS: ATORVASTATIN CA 20 MG TABLET (FP) PO SCH (22:07)
[2020-11-30] MEDS: INSULIN SLIDING SCALE (NOVOLOG) 1 VIAL SQ SCH ×4 (06:33→21:24)
[2020-11-30] MEDS: INSULIN (LEVEMIR) 100 UNITS/ML UNITS SQ SCH ×2 (06:34→21:23)
[2020-11-30 06:42] LABS: HEMATOCRIT 35.1 % (32.4-45.2); HEMOGLOBIN 11.7 GM/dL (10.7-15.3); MCH 28.1 pg (25.7-33.7); MCHC 33.5 g/dl (32.0-36.0); MEAN PLT VOLUME 8.7 fl (7.5-11.1); PLATELET COUNT 257 K/MM3 (134-434); RBC 4.17 M/mm3 (3.60-5.2); RDW 14.3 % (11.6-15.6); WHITE BLOOD COUNT 11.1 K/mm3 (4.0-10.0)
[2020-11-30 07:14] LABS: POTASSIUM 4.9 mmol/L (3.5-5.1)
[2020-11-30 07:16] LABS: CALCIUM 8.9 mg/dL (8.5-10.1)
[2020-11-30 07:17] LABS: ALBUMIN 2.3 g/dl (3.4-5.0); BLOOD UREA NITROGEN 18.1 mg/dL (7-18); MAGNESIUM 2.2 mg/dL (1.8-2.4)
[2020-11-30 07:20] LABS: CREATININE 0.6 mg/dL (0.55-1.3); PHOSPHOROUS 3.7 mg/dL (2.5-4.9)
[2020-11-30 07:21] LABS: BILIRUBIN,TOTAL 0.7 mg/dL (0.2-1); TOT PROT 6.4 g/dl (6.4-8.2)
[2020-11-30] MEDS: ALBUTEROL SO4 HFA INHALER IH SCH ×4 (08:09→20:30)
[2020-11-30] MEDS: ASPIRIN 81 MG CHEWABLE TABLETS PO SCH (09:23)
[2020-11-30] MEDS: ENOXAPARIN NA (PORCINE) 60 MG/0.6 ML DISP.SYRIN SQ SCH ×2 (09:24→21:24)
[2020-11-30] MEDS: DEXAMETHASONE SOD PHOSPHATE 4 MG/1 ML VIAL IVPUSH SCH (09:24)
[2020-11-30] MEDS: BUDESONIDE/FORMETEROL FUMARATE 160/4.5 mcg INHALER IH SCH ×2 (09:24→21:25)
[2020-11-30] MEDS: POLYETHYLENE GLYCOL 3350 119 GM BTL PO SCH (09:24)
[2020-11-30] MEDS: ASCORBIC ACID 500 MG TABLET (FP) PO SCH ×2 (09:24→21:26)
[2020-11-30] MEDS: FAMOTIDINE 20 MG TABLET PO SCH ×2 (09:25→21:25)
[2020-11-30] MEDS: ZINC SULFATE 220 MG CAPSULE (FP) PO SCH (09:25)
[2020-11-30] MEDS: CHOLECALCIFEROL (VIT D3) 1,000 UNIT (25 MCG) TABLET PO SCH (09:25)
[2020-11-30] MEDS: ATORVASTATIN CA 20 MG TABLET (FP) PO SCH (21:24)
[2020-12-01 02:40] LABS: ARTERIAL BLD GAS O2 SATURATION 73.9 mmHg (95-98); ARTERIAL BLOOD GAS BASE EXCESS 3.1 mmol/L (-2-2); ARTERIAL BLOOD GAS pH 7.463 (7.350-7.450)
[2020-12-01 02:45] LABS: ALLENS TEST POSITIVE
[2020-12-01 02:46] LABS: VENT MODE 50L
[2020-12-01 02:48] LABS: ARTERIAL BLOOD GAS PO2 36.9 mmHg (80-100)
[2020-12-01] MEDS ORDERED: RAPID SEQUENCE INTUBATION KIT NR ONE (02:58)
[2020-12-01] MEDS ORDERED: PROPOFOL 1,000,000 MCG/100 ML VIAL ONE (03:25)
[2020-12-01] MEDS ORDERED: FENTANYL NS IVPB 500 MCG/100 ML BAG IVPB SCH (03:30)
[2020-12-01] MEDS ORDERED: PROPOFOL 1,000,000 MCG/100 ML VIAL IVPB SCH (03:30)
[2020-12-01] MEDS ORDERED: VECURONIUM BROMIDE 100 MG/100 ML BAG IVPB SCH (03:30)
[2020-12-01] MEDS ORDERED: SODIUM CHLORIDE 0.9% 500 ML INFUS.BAG IV ONE (04:15)
[2020-12-01 04:36] LABS: ARTERIAL BLD GAS O2 SATURATION 95.4 mmHg (95-98); ARTERIAL BLOOD GAS BASE EXCESS -1.3 mmol/L (-2-2); ARTERIAL BLOOD GAS PO2 84.7 mmHg (80-100)
[2020-12-01 04:38] LABS: ALLENS TEST POSITIVE
[2020-12-01 04:39] LABS: VENT MODE A/C; VENT RATE 20
[2020-12-01 06:22] LABS: ARTERIAL BLD GAS O2 SATURATION 96.2 mmHg (95-98); ARTERIAL BLOOD GAS BASE EXCESS -4.3 mmol/L (-2-2); ARTERIAL BLOOD GAS PO2 95.9 mmHg (80-100); ARTERIAL BLOOD GAS pH 7.258 (7.350-7.450)
[2020-12-01 06:27] LABS: ALLENS TEST POSITIVE; VENT MODE A/C; VENT RATE 16
[2020-12-01] MEDS: INSULIN (LEVEMIR) 100 UNITS/ML UNITS SQ SCH ×2 (06:34→22:32)
[2020-12-01] MEDS: INSULIN SLIDING SCALE (NOVOLOG) 1 VIAL SQ SCH ×4 (06:34→21:16)
[2020-12-01] MEDS ORDERED: guaiFENesin/CODEINE 10 ML UNIT-DOSE CUPS PO PRN (07:02)
[2020-12-01] MEDS ORDERED: ACETAMINOPHEN 325 MG TABLET (FP) PO PRN (07:02)
[2020-12-01] MEDS: PROPOFOL 1,000,000 MCG/100 ML VIAL IVPB SCH ×2 (07:31→23:00)
[2020-12-01] MEDS: VECURONIUM BROMIDE 100 MG/100 ML BAG IVPB SCH (07:32)
[2020-12-01] MEDS: FENTANYL NS IVPB 500 MCG/100 ML BAG IVPB SCH ×2 (07:33→23:00)
[2020-12-01] MEDS: DEXAMETHASONE SOD PHOSPHATE 4 MG/1 ML VIAL IVPUSH SCH (10:36)
[2020-12-01] MEDS: POLYETHYLENE GLYCOL 3350 119 GM BTL PO SCH (11:11)
[2020-12-01] MEDS: ZINC SULFATE 220 MG CAPSULE (FP) PO SCH (11:11)
[2020-12-01] MEDS: ASPIRIN 81 MG CHEWABLE TABLETS PO SCH (11:11)
[2020-12-01] MEDS: CHOLECALCIFEROL (VIT D3) 1,000 UNIT (25 MCG) TABLET PO SCH (11:12)
[2020-12-01] MEDS: ASCORBIC ACID 500 MG TABLET (FP) PO SCH ×2 (11:12→21:17)
[2020-12-01] MEDS: FAMOTIDINE 20 MG TABLET PO SCH ×2 (11:12→21:16)
[2020-12-01] MEDS: MUPIROCIN 2% TOPICAL OINTMENT FOR DECOLONIZATION NS SCH ×2 (12:08→21:14)
[2020-12-01] MEDS: BUDESONIDE/FORMETEROL FUMARATE 160/4.5 mcg INHALER IH SCH ×2 (12:10→22:25)
[2020-12-01 13:36] LABS: HEMATOCRIT 36.4 % (32.4-45.2); MCH 28.3 pg (25.7-33.7); MEAN CELL VOLUME 85.8 fl (80-96); PLATELET COUNT 298 K/MM3 (134-434); RBC 4.24 M/mm3 (3.60-5.2); RDW 14.2 % (11.6-15.6); WHITE BLOOD COUNT 18.6 K/mm3 (4.0-10.0)
[2020-12-01 13:58] LABS: POTASSIUM 4.7 mmol/L (3.5-5.1)
[2020-12-01 14:02] LABS: ALBUMIN 2.3 g/dl (3.4-5.0); BLOOD UREA NITROGEN 21.3 mg/dL (7-18); MAGNESIUM 2.2 mg/dL (1.8-2.4)
[2020-12-01 14:05] LABS: CREATININE 0.5 mg/dL (0.55-1.3); PHOSPHOROUS 4.9 mg/dL (2.5-4.9)
[2020-12-01 14:06] LABS: BILIRUBIN,TOTAL 0.5 mg/dL (0.2-1)
[2020-12-01 14:07] LABS: TOT PROT 6.6 g/dl (6.4-8.2)
[2020-12-01] MEDS: ENOXAPARIN NA (PORCINE) 60 MG/0.6 ML DISP.SYRIN SQ SCH ×2 (16:14→22:33)
[2020-12-01] MEDS: ALBUTEROL SO4 HFA INHALER IH SCH (20:14)
[2020-12-01] MEDS: CHLORHEXIDINE GLUCONATE 4% CLEANSER FOR DECOLONIZATION TP SCH (21:14)
[2020-12-01] MEDS: ATORVASTATIN CA 20 MG TABLET (FP) PO SCH (21:15)
[2020-12-02] MEDS ORDERED: ACETAMINOPHEN 1000 MG/100 ML VIAL (NON FORMULARY) IVPB ONE ×2 (04:23→18:30)
[2020-12-02 06:45] LABS: ARTERIAL BLOOD GAS PO2 169.3 mmHg (80-100); ARTERIAL BLOOD GAS pH 7.307 (7.350-7.450)
[2020-12-02 06:46] LABS: ALLENS TEST POSITIVE; VENT MODE A/C; VENT RATE 20
[2020-12-02] MEDS: INSULIN SLIDING SCALE (NOVOLOG) 1 VIAL SQ SCH ×4 (06:47→23:12)
[2020-12-02 07:35] LABS: HEMATOCRIT 33.9 % (32.4-45.2); HEMOGLOBIN 11.5 GM/dL (10.7-15.3); MCH 28.9 pg (25.7-33.7); MEAN CELL VOLUME 85.2 fl (80-96); MEAN PLT VOLUME 8.8 fl (7.5-11.1); PLATELET COUNT 203 K/MM3 (134-434); RBC 3.98 M/mm3 (3.60-5.2); WHITE BLOOD COUNT 11.9 K/mm3 (4.0-10.0)
[2020-12-02 07:52] LABS: POTASSIUM 3.7 mmol/L (3.5-5.1)
[2020-12-02 07:56] LABS: CALCIUM 8.4 mg/dL (8.5-10.1)
[2020-12-02 07:57] LABS: BLOOD UREA NITROGEN 17.5 mg/dL (7-18); MAGNESIUM 1.8 mg/dL (1.8-2.4)
[2020-12-02 08:00] LABS: CREATININE 0.5 mg/dL (0.55-1.3); PHOSPHOROUS 3.2 mg/dL (2.5-4.9)
[2020-12-02 08:01] LABS: BILIRUBIN,TOTAL 0.7 mg/dL (0.2-1); TOT PROT 5.9 g/dl (6.4-8.2)
[2020-12-02] MEDS: FENTANYL NS IVPB 500 MCG/100 ML BAG IVPB SCH ×2 (08:02→17:40)
[2020-12-02] MEDS: FAMOTIDINE 20 MG TABLET PO SCH (10:00)
[2020-12-02] MEDS: DEXAMETHASONE SOD PHOSPHATE 4 MG/1 ML VIAL IVPUSH SCH (10:00)
[2020-12-02] MEDS: ASCORBIC ACID 500 MG TABLET (FP) PO SCH ×2 (10:00→23:12)
[2020-12-02] MEDS: ZINC SULFATE 220 MG CAPSULE (FP) PO SCH (10:00)
[2020-12-02] MEDS: ASPIRIN 81 MG CHEWABLE TABLETS PO SCH (10:00)
[2020-12-02] MEDS: CHOLECALCIFEROL (VIT D3) 1,000 UNIT (25 MCG) TABLET PO SCH (10:00)
[2020-12-02] MEDS: MUPIROCIN 2% TOPICAL OINTMENT FOR DECOLONIZATION NS SCH ×2 (10:01→23:13)
[2020-12-02] MEDS: ENOXAPARIN NA (PORCINE) 60 MG/0.6 ML DISP.SYRIN SQ SCH (10:01)
[2020-12-02] MEDS: POLYETHYLENE GLYCOL 3350 119 GM BTL PO SCH (10:11)
[2020-12-02] MEDS: VECURONIUM BROMIDE 100 MG/100 ML BAG IVPB SCH (10:38)
[2020-12-02] MEDS: BUDESONIDE/FORMETEROL FUMARATE 160/4.5 mcg INHALER IH SCH ×2 (10:39→23:13)
[2020-12-02] MEDS: PROPOFOL 1,000,000 MCG/100 ML VIAL IVPB SCH (17:39)
[2020-12-02] MEDS ORDERED: ACETAMINOPHEN INJECTION 100 ML IVPB ONE (18:04)
[2020-12-02] MEDS ORDERED: VANCOMYCIN 1 GM in D5W (PRE-DOCKED) 1,000 MG/250 ML IVPB SCH (19:00)
[2020-12-02] MEDS ORDERED: SODIUM CHLORIDE 1,000 ML IV STA (20:02)
[2020-12-02 20:09] LABS: BASO % 0.3 % (0-2.0); EOS % 0.1 % (0-4.5); HEMATOCRIT 35.4 % (32.4-45.2); HEMOGLOBIN 11.7 GM/dL (10.7-15.3); LYMPH % 8.4 % (8-40); MCH 28.4 pg (25.7-33.7); MCHC 33.1 g/dl (32.0-36.0); MEAN CELL VOLUME 85.7 fl (80-96); MONO % 3.5 % (3.8-10.2); NEUT % 87.7 % (42.8-82.8); PLATELET COUNT 279 K/MM3 (134-434); RBC 4.13 M/mm3 (3.60-5.2); RDW 14.5 % (11.6-15.6)
[2020-12-02 20:16] LABS: INR 1.58 (0.83-1.09); PROTHROMBIN TIME (PATIENT) 19.2 SEC (9.7-13.0)
[2020-12-02 20:19] LABS: ACTIVATED PTT 43.6 SECONDS (25.2-36.5)
[2020-12-02 20:24] LABS: EPI CELLS 21 /uL (0-25.1); HYALINE CASTS 12 /uL (0-3.1); URINE APPEARANCE CLOUDY; URINE BACTERIA 5 /uL (0-1359); URINE BILIRUBIN 1+ (NEGATIVE); URINE COLOR DK YELLOW; URINE GLUCOSE (UA) NEGATIVE (NEGATIVE); URINE KETONE NEGATIVE (NEGATIVE); URINE LEUK ESTERASE TRACE (NEGATIVE); URINE NITRITE NEGATIVE (NEGATIVE); URINE PROTEIN 1+ (NEGATIVE); URINE WBC 7 /uL (0-25.8)
[2020-12-02 20:37] LABS: POTASSIUM 3.9 mmol/L (3.5-5.1)
[2020-12-02 20:39] LABS: CALCIUM 8.2 mg/dL (8.5-10.1)
[2020-12-02 20:40] LABS: ALBUMIN 1.7 g/dl (3.4-5.0); BLOOD UREA NITROGEN 23.9 mg/dL (7-18); MAGNESIUM 1.9 mg/dL (1.8-2.4)
[2020-12-02 20:43] LABS: PHOSPHOROUS 5.1 mg/dL (2.5-4.9)
[2020-12-02 20:44] LABS: BILIRUBIN,TOTAL 0.6 mg/dL (0.2-1)
[2020-12-02 20:45] LABS: TOT PROT 5.2 g/dl (6.4-8.2)
[2020-12-02 21:23] LABS: ANISOCYTOSIS 0; MACROCYTOSIS 0; PLATELET ESTIMATE NORMAL
[2020-12-02] MEDS ORDERED: PANTOPRAZOLE SODIUM 40 MG VIAL IVPUSH SCH (22:00)
[2020-12-02] MEDS ORDERED: SODIUM CHLORIDE 1,000 ML IV SCH (22:45)
[2020-12-02] MEDS ORDERED: NOREPINEPHRINE D5W PREMIX 16,000 MCG/500 ML BAG IVPB SCH (22:45)
[2020-12-02 23:10] LABS: URINE RBC 71 /uL (0-23.9)
[2020-12-02] MEDS: ATORVASTATIN CA 20 MG TABLET (FP) PO SCH (23:12)
[2020-12-02] MEDS: CHLORHEXIDINE GLUCONATE 4% CLEANSER FOR DECOLONIZATION TP SCH (23:13)
[2020-12-02] MEDS: ALBUTEROL SO4 HFA INHALER IH SCH (23:14)
[2020-12-02] MEDS: INSULIN (LEVEMIR) 100 UNITS/ML UNITS SQ SCH (23:20)
[2020-12-03 01:04] LABS: HEMOGLOBIN 10.5 GM/dL (10.7-15.3); MCH 28.1 pg (25.7-33.7); MCHC 31.8 g/dl (32.0-36.0); MEAN CELL VOLUME 88.2 fl (80-96); MEAN PLT VOLUME 9.4 fl (7.5-11.1); PLATELET COUNT 274 K/MM3 (134-434); RBC 3.74 M/mm3 (3.60-5.2); RDW 14.9 % (11.6-15.6); WHITE BLOOD COUNT 4.1 K/mm3 (4.0-10.0)
[2020-12-03] MEDS ORDERED: MEROPENEM 1 GM in DEXTROSE 5%-WATER 100 ML IVPB SCH ×2 (02:00→18:30)
[2020-12-03 02:06] LABS: LACTIC ACID 4.2 mmol/L (0.4-2.0)
[2020-12-03 02:18] VITALS: BP 97/59
[2020-12-03 02:23] VITALS: TEMP 98
[2020-12-03] MEDS ORDERED: DEXTROSE 5%-WATER 100 ML IVPB ONE (02:54)
[2020-12-03] MEDS ORDERED: MEROPENEM 1 GM VIAL (RESTRICTED TO ID) IVPB ONE (02:54)
[2020-12-03] MEDS ORDERED: VASOPRESSIN 40 UNITS in SODIUM CHLORIDE 98 ML IVPB SCH (03:00)
[2020-12-03] MEDS ORDERED: METOPROLOL TARTRATE 5 MG/5 ML VIAL IVPUSH ONE (03:33)
[2020-12-03] MEDS ORDERED: METOPROLOL TARTRATE 5 MG/5 ML VIAL ONE (03:46)
[2020-12-03] MEDS ORDERED: MIDAZOLAM IN 0.9 % SOD.CHLORID 1 MG/1 ML PLAST..BAG ONE (03:51)
[2020-12-03] MEDS ORDERED: MIDAZOLAM IN 0.9 % SOD.CHLORID 100 MG/100 ML PLAST..BAG IVPB SCH (04:00)
[2020-12-03] MEDS ORDERED: EPINEPHrine 1:10,000 (P-F SYR) 1 MG/10 ML DISP.SYRIN ONE (04:22)
[2020-12-03 08:00] VITALS: PULSE 137
[2020-12-03] MEDS ORDERED: AMINO ACIDS/PROTEIN HYDROLYS 30 ML LIQUID.PKT PO SCH (08:00)
[2020-12-03] MEDS ORDERED: VANCOMYCIN 1 GM in D5W (PRE-DOCKED) 1,000 MG/250 ML IVPB SCH (10:00)
== END 2020-12-03 04:44 | disposition expired | DRG 951 ==
LOC: JER 16:23 → JERBED 19:50 → J8W 11-16 02:49 → J2W 11-25 14:33 → JICU 12-01 14:45
PROVIDERS: ADMIT Internal Medicine; ATTEND Internal Medicine Pulmonary Disease
PROC: XW033E5 Introduction of Remdesivir Anti-infective into Peripheral Vein, Percutaneous Approach, New Technology Group 5 (ICD-10-PCS; 2020-11-16)
PROC: 0BH17EZ Insertion of Endotracheal Airway into Trachea, Via Natural or Artificial Opening (ICD-10-PCS; principal; 2020-12-01)
PROC: 5A1945Z Respiratory Ventilation, 24-96 Consecutive Hours (ICD-10-PCS; 2020-12-01)
PROC: 0DH67UZ Insertion of Feeding Device into Stomach, Via Natural or Artificial Opening (ICD-10-PCS; 2020-12-01)
PROC: 05HM33Z Insertion of Infusion Device into Right Internal Jugular Vein, Percutaneous Approach (ICD-10-PCS; 2020-12-02)
PROC: B543ZZA Ultrasonography of Right Jugular Veins, Guidance (ICD-10-PCS; 2020-12-02)
PROC: 5A12012 Performance of Cardiac Output, Single, Manual (ICD-10-PCS; 2020-12-03)
DX: U07.1 COVID-19 (principal); E11.9 Type 2 diabetes mellitus without complications; E78.5 Hyperlipidemia, unspecified; J12.82 Pneumonia due to coronavirus disease 2019; J80 Acute respiratory distress syndrome; E11.65 Type 2 diabetes mellitus with hyperglycemia; E87.5 Hyperkalemia; D72.829 Elevated white blood cell count, unspecified; I10 Essential (primary) hypertension; A41.89 Other specified sepsis; R50.9 Fever, unspecified; K92.2 Gastrointestinal hemorrhage, unspecified; I46.9 Cardiac arrest, cause unspecified; R00.0 Tachycardia, unspecified
CPT/HCPCS: 31500; 36415; 36600; 71045-TC-FY; 80053; 81003; 82248; 82550; 82553; 82728; 82803; 82947; 82962; 83036; 83605; 83615; 83735; 84100; 84132; 84484; 85025; 85027; 85379; 85384; 85610; 85651; 85730; 86140; 86738; 86769; 86850; 86900; 86901; 87040; 87070; 87077; 87086; 87186; 87205; 87804; 87899; 93005; 93010; 94002; 99285-25; C9399; C9803; J0131; J1100; U0003